=== PATIENT | female | born 1980 | race Hispanic/Latino ===

== ENCOUNTER 2018-07-21 12:56 | Outpatient (CLI) | payer BC ==
[2018-07-21] MEDS ORDERED: Gadobenate Dimeglumine 529 MG/1 ML (20ML VIAL) ONE (16:31)
--- NOTE | 2018-07-22 10:24 | MRI ---
MRI OF THE PELVIS WITH AND WITHOUT IV CONTRAST: Date: 07/21/18 INDICATION: History of uterine fibroid. CONTRAST: 15 mL MultiHance. COMPARISON: None. FINDINGS: The uterus is enlarged and measures 12.0 x 8.2 x 14.8 cm in its greatest craniocaudad, AP, and mediol ateral dimensions, respectively. There are multiple large fibroids present within the uterus. The lar gest is seen within the left uterine fundus and is predominantly intramural, measuring 8.4 x 6.6 x 10 .3 cm. There are two subserosal fibroids seen along the right uterine fundal border measuring 4.3 x 3 .8 and 3.3 x 3.0 cm, respectively. Additional smaller subserosal fibroid is seen on the posterior muckleshoot rine body measuring 1.6 cm. There is prominent deformity of the endometrial canal and it is predomina ntly displaced to the right posterolateral aspect of the uterine contour. Junctional zone appears wit hin normal limits. There are two separate cysts seen within the right lateral wall of the vagina, mos t suspicious for small Brady duct cyst. There is mild free fluid in the pelvis. The left ovary maite ures 3.9 x 2.4 x 3.7 cm. There is an involuting cyst within the left ovary. The right ovary measures 3.5 x 1.9 x 3.0 cm with normal appearing follicles. No lymphadenopathy is evident. No suspicious abnormal enhancement is demonstrated. The fibroids in ge neral have hypoenhancement on the postcontrast series. No definite bone marrow signal abnormality is evident. IMPRESSION: 1. Large fibroid uterus. 2. Involuting cyst within the left adnexa. 3. Two separate Brady duct cysts involving the right anterolateral aspect of the vaginal wall. 4. Mild free fluid in the pelvis is likely physiologic in nature. POS: CET
== END 2018-07-21 12:57 | disposition home or self-care (01) ==
LOC: BICMRI 12:56
PROVIDERS: ATTEND Obstetrics & Gynecology
DX: D25.9 Leiomyoma of uterus, unspecified (principal); R10.2 Pelvic and perineal pain; N89.8 Other specified noninflammatory disorders of vagina
CPT/HCPCS: 72197

== ENCOUNTER 2018-09-11 11:31 | Inpatient (IN) | payer BC ==
[2018-09-08 16:18] LABS: Hemoglobin 11.6 g/dL (12.0-16.0); Mean Corpuscular HGB CONC 34.1 g/dL (32.0-36.0); Mean Corpuscular Volume 85.1 fL (78.0-98.0); Mean Platelet Volume 9.5 fL (7.4-10.4); Platelet Count 277 thou/uL (130-400); RBC Distribution Width 14.4 % (11.5-14.5); Red Blood Cell (RBC) Count 4.02 mill/uL (4.20-5.40); White Blood Cell (WBC) Count 7.8 thou/uL (4.8-10.8)
[2018-09-08 16:23] VITALS: BMI 30.9
[2018-09-08 16:26] LABS: BHCG - Serum Negative (NEGATIVE); Pregs Control Background? CLEAR/WHITE (CLR/WHITE); Pregs Control Bar Appear? YES (CONTROL BAR)
[2018-09-08 16:31] LABS: Anion Gap 15 mmol/L (10-20); BUN (Urea Nitrogen) 11 mg/dL (7.0-18.7); Calc. Creatinine Clearance 0 mL/min (70-130); Calcium 9.5 mg/dL (7.8-10.44); Carbon Dioxide 23 mmol/L (22-29); Chloride 106 mmol/L (98-107); Estimated GFR-MDRD 82; Glucose 115 mg/dL (70-105); Potassium 3.8 mmol/L (3.5-5.1); Sodium 140 mmol/L (136-145)
[2018-09-11] MEDS ORDERED: Gabapentin 300 MG CAP ONE (12:27)
[2018-09-11] MEDS ORDERED: Famotidine/PF 20 mg/2ml Vial ONE (12:28)
[2018-09-11] MEDS ORDERED: Sodium Chloride 0.9% 100 ML ONE (12:30)
[2018-09-11] MEDS ORDERED: Tranexamic Acid 1,000 MG/10 ML VIAL ONE (12:30)
[2018-09-11] MEDS ORDERED: Acetaminophen 1,000 MG in Premix Bag 1 BAG IVPB SCH (12:45)
[2018-09-11] MEDS ORDERED: Tranexamic Acid 1,000 MG in Sodium Chloride 0.9% 100 ML IVPB SCH (12:45)
[2018-09-11] MEDS ORDERED: Famotidine/PF 20 mg/2ml Vial SLOW IVP SCH (12:45)
[2018-09-11] MEDS ORDERED: Gabapentin 300 MG CAP PO SCH (12:45)
[2018-09-11] MEDS ORDERED: ceFAZolin Sodium 2 GM/100 ML BAG IVPB SCH (12:45)
[2018-09-11] MEDS ORDERED: Misoprostol 200 MCG TAB VAG SCH (12:45)
[2018-09-11] MEDS ORDERED: Midazolam HCl 2 mg/2 ml Vial ONE (13:45)
[2018-09-11] MEDS ORDERED: Fentanyl 100 MCG/2 ML VIAL ONE (13:57)
[2018-09-11] MEDS ORDERED: Bupivacaine HCl 0.5%/Epinephrine 1:200,000/PF 30 ml Vial ONE (13:59)
[2018-09-11] MEDS ORDERED: HYDROmorphone 2 MG/ML VIAL ONE (15:30)
[2018-09-11] MEDS ORDERED: ePHEDrine 50 MG/ML VIAL ONE (16:43)
[2018-09-11] MEDS ORDERED: PROPOFOL 200 MG/20 ML VIAL ONE (16:43)
[2018-09-11] MEDS ORDERED: PHENYLEPHRINE-NS 100 MCG/ML 10 ML SYRINGE ONE (16:43)
[2018-09-11] MEDS ORDERED: Ketorolac Tromethamine 30 MG/ML VIAL ONE (16:43)
[2018-09-11] MEDS ORDERED: Dexamethasone 20 MG/5 ML VIAL ONE (16:43)
[2018-09-11] MEDS ORDERED: Ondansetron PF 4 MG/2 ML Vial ONE (16:43)
[2018-09-11] MEDS ORDERED: Lidocaine 1% PF 5 ML VIAL ONE (16:43)
[2018-09-11] MEDS ORDERED: Rocuronium Bromide 10 MG/ML (10ML VIAL) ONE (16:43)
[2018-09-11] MEDS ORDERED: Simethicone Chewable 80 MG TAB PO PRN (18:23)
[2018-09-11] MEDS ORDERED: Ondansetron PF 4 MG/2 ML Vial IVP PRN (18:23)
[2018-09-11] MEDS ORDERED: Zolpidem Tartrate 5 MG TAB PO PRN (18:23)
[2018-09-11] MEDS ORDERED: HYDROcodone/Acetaminophen 5/325 mg Tablet PO PRN ×2 (18:23)
[2018-09-11] MEDS ORDERED: diphenhydrAMINE 25 MG CAP PO PRN (18:23)
[2018-09-11] MEDS ORDERED: Bisacodyl 10 MG SUPP PR PRN (18:23)
[2018-09-11] MEDS ORDERED: Acetaminophen 325 MG TAB PO PRN (18:23)
[2018-09-11] MEDS ORDERED: Promethazine HCl 25 MG/ML VIAL IM PRN ×2 (18:23→18:39)
[2018-09-11] MEDS ORDERED: PACU-Morphine 4MG/ML VIAL SLOW IVP PRN (18:39)
[2018-09-11] MEDS ORDERED: Promethazine HCl 25 MG/ML VIAL SLOW IVP PRN (18:39)
[2018-09-11] MEDS ORDERED: HYDROmorphone 2 MG/ML VIAL SLOW IVP PRN (18:39)
[2018-09-11] MEDS ORDERED: Ondansetron HCl/PF 4 MG/2 ML Vial IVP PRN (18:39)
[2018-09-11] MEDS: Lactated Ringer's 1,000 ML IV SCH (19:50)
[2018-09-11] MEDS: Ibuprofen 800 MG TAB PO SCH (22:20)
--- NOTE | 2018-09-12 03:15 | OP ---
DATE OF PROCEDURE: 09/11/2018 PREOPERATIVE DIAGNOSIS: Enlarged uterine leiomyoma with a history of a second trimester loss, likely due to the enlarged leiomyoma. POSTOPERATIVE DIAGNOSIS: Enlarged uterine leiomyoma with a history of a second trimester loss, likely due to the enlarged leiomyoma. PROCEDURE PERFORMED: Robotic-assisted laparoscopic myomectomy with extracorporeal morcellation using O Entregador containment system. KINESEOLOGIST: Ivelisse Hill MD COMPLICATIONS: None. ANESTHESIA: General. ESTIMATED BLOOD LOSS: 200 mL. IV FLUIDS: 1700 mL. URINARY OUTPUT: 1200 mL. FINDINGS: Normal external genitalia. Normal cervical and vaginal epithelium. Enlarged fibroid uterus approximately 18 weeks in size with three large fibroids , the 10 cm fibroid was on the left fundal aspect of the uterus and was intramural and there were also two additional subserosal fibroids on the right aspect of the uterus. The fallopian tubes appeared normal and were not felt within the fibroids and the ovaries also appeared normal. INDICATIONS FOR THE PROCEDURE: Ms. Lisa Cook is a 38-year-old, G1, P0, A1, who presented for consultation due to an enlarged fibroid uterus. The patient recently had a 19-week loss, which was thought to be related to possible labor due to her enlarged fibroid uterus. She also had complaints of pelvic pressure and pain. The patient was counseled on options and elected to have a laparoscopic myomectomy as she preferred to retain her uterus for potential future fertility. The patient was counseled on all risks, benefits, alternatives, and indication and understood that there was a rare but identifiable risk of requiring hysterectomy at the time of her myomectomy. DESCRIPTION OF PROCEDURE: The patient was brought to the operating room. She was placed under general anesthesia and the patient was placed in dorsal lithotomy position using Todd stirrups. She was prepped and draped in a sterile fashion. An official time-out was performed. She was given Ancef for surgical prophylaxis and she was also given tranexamic acid and Cytotec to help prevent bleeding during her myomectomy. An official time-out was performed. A single-sided speculum was placed in the vagina. Anterior aspect of the cervix was grasped with a use of single- tooth tenaculum and the cervix was sequentially dilated. The uterus was sounded to 13 cm, so a 12 cm CHRISTIANA manipulator was inserted and appropriately secured. The speculum and tenaculum were removed from the vagina and a Beltran catheter was inserted into the bladder. Gloves were exchanged and attention was turned to the abdominal portion. A supraumbilical incision was made using the scalpel, and a Veress needle was inserted into the peritoneal cavity noting a normal pressure. The 12 mm camera trochar was inserted. The patient was placed in Trendelenburg position. Full Stack Net Developer ports and robotic ports were placed and using two 8 mm robotic ports in the right aspect of the abdomen, one 8 mm robotic port and one 11 mm entry level marketing assistant port placed in the left aspect of the abdomen. All were placed using local anesthesia and under direct visualization. The camera incision was then extended slightly to approximately 2.5 to 3 cm and a GelPOINT John O retractor was then inserted. The containment bag was placed in the upper abdomen and the GelPOINT was then attached and the abdomen was re-insufflated. The robot was then docked to the patient. The instruments were inserted. Dilute vasopressin was then injected along the large 10 cm fibroid, injecting approximately 5 mL in horizontal fashion. A horizontal fundal incision was then made down to the level of the fibroid. The plane between the fibroid in the myometrium was then undermined anteriorly. The fibroid was grasped using a tenaculum and it was noted that the fibroid was degenerating at this portion and had degenerative/loose tissue. The dissection was carried down using both sharp and blunt dissection in a circumferential fashion until the uterine fibroid was completely enucleated. This process took approximately 1-hour to enucleate this large intrauterine fibroid due to the size and degenerative tissue making the process more difficult. Again, the process was done using both sharp and blunt dissection working circumferentially using traction and countertraction, maintaining hemostasis with bipolar cautery as needed. There was no damage to the fallopian tubes during this process, however, the full spectrum of the myometrium was involved and likely the endometrium may have also been slightly involved throughout the course of this dissection as the fibroid was quite large. Once this fibroid was removed, the fibroid was placed in the anterior cul-de-sac and several areas along the myometrium were coagulated to help achieve some hemostasis. This large defect was then closed in three layer closure using the combination of both 2-0 V-Loc and 2-0 Stratafix suture, and this defect was hemostatic after closure. There was generalized oozing along the myometrium prior to the closure, which contributed to the blood loss related to the surgery. The area was then irrigated and cleared of all clot and debris. Attention was then turned over to the remaining fibroids on the right aspect of the uterus. There was an approximately 4 cm fibroid just to the right and posterior and then an additional 5 cm fibroid on the right lateral aspect of the fundus. It was near the right fallopian tube; however, not encompassing the right fallopian tube. Horizontal incision was then made on the smaller 4 cm posterior right-sided fundal fibroid, which was just subserosal and was very superficial. The fibroid was then grasped using a tenaculum and the fibroid was enucleated. The other right lateral fibroid was injected with dilute vasopressin as well. An additional horizontal incision was made and again this was very superficial, which was just a subserosal fibroid and this fibroid was also enucleated. These two smaller defects were closed in a one layer closure using 2-0 Stratafix suture. The area was irrigated and cleared of all clot and debris. There was some blood clot on the left paracolic gutter that was not able to be completely removed as the suction was no longer working. However, majority of the clot was removed. The fibroids were then placed into the Ojhn containment bag and this was brought up through the GelPOINT. The instruments were removed. The robot was undocked from the patient and the John bag was then pulled up through the GelPOINT and the John retractor was then appropriately repositioned to morcellate the tissue. The tissue was then morcellated in a C-fashion until all of the fibroids were removed from this site. Again, noting that there were some degenerative appearing fibroids and also dense fibroids. The morcellation process added an additional 30 minutes to the procedure. The John bag and retractor were then removed and the trocars were also removed. The fascia at the midline port was closed in a running fashion using 0 Vicryl. The skin lateral incision points were closed using 4-0 Monocryl and Dermabond. The CHRISTIANA manipulator was removed from the vagina. The tenaculum site was hemostatic. The patient was then placed back in supine position. She was extubated without difficulty and transferred to the recovery room in hemodynamically stable condition. All counts were correct x2. Job ID: [id number] MTDD
[2018-09-12] MEDS: Lactated Ringer's 1,000 ML IV SCH (04:33)
[2018-09-12] MEDS: Ibuprofen 800 MG TAB PO SCH (06:29)
[2018-09-12 07:50] VITALS: BP 119/67; TEMP 98.8
[2018-09-12 08:00] LABS: #Lymphocytes 1.5 thou/uL (1.20-3.40); #Monocytes 1.5 thou/uL (0.11-0.59); #Neutrophils 9.4 thou/uL (1.40-6.50); %Basophils 0.1 % (0.0-1.0); %Eosinophils 0.1 % (0.0-10.0); %Monocytes 11.7 % (0.0-10.0); %Neutrophils 76.1 % (42.0-75.0); Hemoglobin 9.5 g/dL (12.0-16.0); Mean Corpuscular HGB CONC 34.5 g/dL (32.0-36.0); Mean Corpuscular Hemoglobin 29.4 pg (27.0-31.0); Mean Corpuscular Volume 85.2 fL (78.0-98.0); Mean Platelet Volume 10.1 fL (7.4-10.4); Platelet Count 217 thou/uL (130-400); RBC Distribution Width 14.4 % (11.5-14.5); Red Blood Cell (RBC) Count 3.25 mill/uL (4.20-5.40); White Blood Cell (WBC) Count 12.4 thou/uL (4.8-10.8)
--- NOTE | 2018-09-12 12:01 | DIS ---
DATE OF ADMISSION: 09/11/2018 DATE OF DISCHARGE: 09/12/2018 ADMISSION DIAGNOSIS: Postoperative pain control, status post robotic-assisted laparoscopic myomectomy. DISCHARGE DIAGNOSIS: Postoperative pain control, status post robotic-assisted laparoscopic myomectomy. ADMISSION AND DISCHARGE PHYSICIAN: Tova Reinoso DO. BRIEF HOSPITAL COURSE: Ms. Lisa Cook is a 38-year-old, G1, P0, A1, who underwent a robotic-assisted laparoscopic myomectomy due to fibroid symptoms. Her intraoperative and postoperative courses were uncomplicated. The patient has met all requirements for discharge. Her labs and vital signs are stable. She has a slight anemia postoperatively which is expected with the intraoperative blood loss and IVF. FOLLOWUP: Follow up in 2 weeks at [facility]. MEDICATIONS: 1. [place] 5/325 one tablet every 6 hours p.r.n. pain, #30, zero refills. 2. Motrin 800 mg one tablet every 8 hours p.r.n. pain, #60, zero refills. 3. The patient was instructed to start iron supplementation over the counter. ACTIVITY RESTRICTIONS: No heavy lifting, pushing, or pulling and pelvic rest for 6 weeks. Wound care was reviewed. DIET: Regular. CODE STATUS: Full. Job ID: [id number] MTDD
--- NOTE | 2018-09-12 12:08 | PRG ---
DATE OF SERVICE: 09/12/2018 HISTORY OF PRESENT ILLNESS: Postoperative day #1, status post robotic assisted laparoscopic myomectomy. SUBJECTIVE: The patient reports [id number] pain, well controlled with oral medications. She denies any heavy bleeding. The patient is passing flatus. Ambulating and voiding without difficulty. She denies any chest pain, palpitations, dizziness, or any other concerns. PHYSICAL EXAMINATION: VITAL SIGNS: Temperature 98.8 Fahrenheit, pulse 97, respiratory rate 20, oxygen saturation is 98% on room air, and blood pressure is 119/67. GENERAL: No acute distress. CARDIOVASCULAR: Regular rate and rhythm. RESPIRATORY: Unlabored breathing. Clear to auscultation bilaterally. ABDOMEN: Soft and nondistended. Mild tenderness to palpation as expected for postoperative day #1. Incisions clean, dry, and intact with Dermabond. NABS. EXTREMITIES: Negative Homans. Negative cords. No edema. LABORATORY DATA: Hemoglobin 9.5, hematocrit 27.7, and platelets 217. ASSESSMENT: Postop day #1 status post robotic assisted laparoscopic myomectomy, doing well. PLAN: The patient has met all requirements for discharge and will be discharged home today with postoperative medications. Pt taking iron supplementation at home. Job ID: [id number] MTDD
== END 2018-09-12 09:51 | disposition home or self-care (01) | DRG 743 ==
LOC: SDC 11:31 → 3SE 19:46
PROVIDERS: ADMIT Obstetrics & Gynecology; ATTEND Obstetrics & Gynecology
PROC: 0UB94ZZ Excision of Uterus, Percutaneous Endoscopic Approach (ICD-10-PCS; principal; 2018-09-11)
PROC: 8E0W4CZ Robotic Assisted Procedure of Trunk Region, Percutaneous Endoscopic Approach (ICD-10-PCS; 2018-09-11)
DX: D25.9 Leiomyoma of uterus, unspecified (principal)
CPT/HCPCS: 36415; 80048; 84703; 85025; 85027; 86850; 86900; 86901; 88305; J0131; J0670; J1100; J1170; J1885; J2001; J2250; J2405; J2704; J3010; J3490; J7050; S0028